=== PATIENT | male | born 1930 | race Caucasian/White ===

== ENCOUNTER 2016-04-17 23:09 | Emergency (ER) | payer OTHER ==
[~2016-04-17] VITALS: Ht 167.6 cm; Wt 74.4 kg
[~2016-04-17 23:09] MED LIST: ALLOPURINOL300 MG PO; ASPIR-LOW81 MG PO; ASPIRIN81 M1 PO; CALCIUM600 M1 PO; CALTRATE600 MG PO; COUMADIN,JANTO2.5 MG PO; COUMADIN2.5 MG PO; COZAAR50 MG PO; CRESTOR10 MG PO; Coumadin dosing per PO; DIOVAN HCT 1601 EACH PO; DIOVAN160 MG PO; FERROUS SULFAT325 MG PO; FIBER THERAPY0.52 GM PO; HYTRIN10 MG PO; Hydrodiuril,Oretic,E PO; LOPRESSOR50 MG PO; METAMUCIL PACKE1 PKT PO; METFORMIN HCL500 M2 PO; METOPROLOL TAR100 MG PO; NIASPAN500 MG PO; NORVASC5 MG PO; PRAVACHOL80 MG PO; PRILOSEC20 MG PO; PROSCAR5 MG PO; Procardia XL,Adalat PO; SOTALOL80 MG PO; VITAMIN B-6100 MG PO; VITAMIN B6100 MG PO; ZYLOPRIM300 MG PO
[2016-04-18 00:03] LABS: INFLUENZA A VIRAL ANTIGEN POSITIVE; INFLUENZA B VIRAL ANTIGEN NEGATIVE
[2016-04-18 00:23] LABS: CHLORIDE 105 mEq/L (99-109); POTASSIUM 3.8 mEq/L (3.7-5.4); SODIUM 138 mEq/L (136-147)
[2016-04-18 00:25] LABS: GLUCOSE 179 mg/dL (70-99)
[2016-04-18 00:26] LABS: ANION GAP 10 MEQ/L (2-14)
[2016-04-18 00:27] LABS: TOTAL BILIRUBIN 1.7 mg/dL (0.0-1.0)
[2016-04-18 00:29] LABS: ALKALINE PHOSPHATASE 54 IU/L (3-129); GFR ESTIMATE (CALCULATED) > 59 mL/min/
[2016-04-18 00:30] LABS: HEMATOCRIT 32.7 % (38.0-50.0); MCH 30.2 PG (29.0-34.0); MCHC 34.6 G/DL (30.0-36.0); MCV 87.4 FL (86-99); MEAN PLAT.VOLUME 11.1 uM^3 (9.0-12.4); MONOCYTE (%) 21.1 % (3-12); PLATELET COUNT 108 K/uL (156-360); RBC DIS.WIDTH-CV 13.6 % (11.8-14.6); RED BLOOD COUNT 3.74 M/uL (4.00-5.50); UREA NITROGEN (BUN) 19 mg/dL (9-23); WHITE BLOOD COUNT 7.8 K/uL (4.1-10.2)
[2016-04-18 00:31] LABS: EOSINOPHIL (%) 0.1 % (0-5); IMMATURE GRANULOCYTE (%) 0.3 % (0.0-0.7); MONOCYTE COUNT 1.7 K/uL (0-0.8); NEUTROPHIL (%) 66.4 % (45-76); NEUTROPHIL COUNT 5.2 K/uL (1.8-6.4)
[2016-04-18 01:03] VITALS: BP 120/71
== END 2016-04-18 01:13 | disposition home or self-care (01) ==
LOC: EME 23:09
PROVIDERS: Emergency Medicine
DX: J10.1 Influenza due to other identified influenza virus with other respiratory manifestations (principal); I10 Essential (primary) hypertension; Z95.0 Presence of cardiac pacemaker; Z87.891 Personal history of nicotine dependence
CPT/HCPCS: 71020; 80053; 83605; 85025; 87502; 99281; 99284